=== PATIENT | female | born 1945 | race Caucasian/White ===

== ENCOUNTER 2020-05-08 11:12 | Outpatient (CLI) | payer MEDICARE, OTHER ==
--- NOTE | 2020-05-08 12:04 | RAD ---
XR Foot Lt 3 View STANDARD History: Arthritis Comparison: None. Findings: No acute fracture or malalignment. Lisfranc interval is maintained. Bipartite medial hallux sesamoid. Incidental note is made of os perineum. Punctate round phlebolith in the medial soft tissues of the a nd midfoot. Impression: Chronic findings. No acute osseous abnormality.
== END 2020-05-08 11:13 | disposition home or self-care (01) ==
LOC: BICRAD 11:12
PROVIDERS: ATTEND Podiatrist
DX: M79.672 Pain in left foot (principal)

== ENCOUNTER 2022-07-30 12:05 | Outpatient (CLI) | payer MEDICARE, OTHER ==
[2022-07-30 13:58] LABS: Hemoglobin 11.8 g/dL (12.0-15.5); Mean Corpuscular HGB CONC 34.9 g/dL (32.0-36.0); Mean Corpuscular Volume 94.4 fl (81.6-98.3); Mean Platelet Volume 11.8 fl (7.4-10.4); Platelet Count 245 10x3/uL (150-450); RBC Distribution Width 12.2 % (11.5-14.5); Red Blood Cell (RBC) Count 3.58 10x6/uL (3.90-5.03); White Blood Cell (WBC) Count 8.6 10x3/uL (3.5-10.5)
[2022-07-30 14:14] LABS: PTT 26.6 sec (22.0-33.0); Prothrombin Time 10.5 sec (9.5-12.1)
[2022-07-30 14:17] LABS: Anion Gap 13 mmol/L (10-20); BUN (Urea Nitrogen) 18 mg/dL (9.8-20.1); Calc. Creatinine Clearance 0 mL/min (70-130); Calcium 9.5 mg/dL (7.8-10.44); Carbon Dioxide 27 mmol/L (23-31); Chloride 101 mmol/L (98-107); Estimated GFR 73; Glucose 161 mg/dL (83-110); Potassium 4.2 mmol/L (3.5-5.1); Sodium 137 mmol/L (136-145)
== END 2022-07-30 12:06 | disposition home or self-care (01) ==
LOC: LABBT 12:05
PROVIDERS: ATTEND Surgery
DX: Z01.818 Encounter for other preprocedural examination (principal); M54.16 Radiculopathy, lumbar region; M48.062 Spinal stenosis, lumbar region with neurogenic claudication; M71.30 Other bursal cyst, unspecified site
CPT/HCPCS: 80048; 85027; 85610; 85730; 93005; 93010

== ENCOUNTER 2022-08-02 05:33 | Inpatient (IN) | payer MEDICARE, OTHER ==
[2022-07-31 16:03] VITALS: BMI 35.7
[2022-08-02] MEDS ORDERED: Vancomycin 1 GM VIAL ONE (06:17)
[2022-08-02] MEDS ORDERED: Thrombin 5000 UNITS/5 ML VIAL ONE (06:18)
[2022-08-02] MEDS ORDERED: Neomycin-Polymyxin 1 ML AMP ONE (06:18)
[2022-08-02] MEDS ORDERED: Bacitracin Zinc Ointment 30 gm TUBE ONE (06:37)
[2022-08-02] MEDS ORDERED: Sodium Chloride 0.9% 100 ML ONE (06:39)
[2022-08-02] MEDS ORDERED: CEFAZOLIN 2 GM VIAL ONE (06:39)
[2022-08-02] MEDS ORDERED: Lidocaine 1% MPF 2 ML VIAL ONE (06:53)
[2022-08-02] MEDS ORDERED: Dexmedetomidine 200 MCG/2 ML VIAL ONE (07:01)
[2022-08-02] MEDS ORDERED: Fentanyl 250 MCG/5 ML VIAL ONE (07:01)
[2022-08-02 07:26] LABS: SARS-CoV-2 NAA Rapid Test Not Detected (NotDetected)
[2022-08-02] MEDS ORDERED: Ondansetron PF 4 MG/2 ML Vial ONE (07:36)
[2022-08-02] MEDS ORDERED: ePHEDrine 50 MG/ML VIAL ONE (07:36)
[2022-08-02] MEDS ORDERED: NEOSTIGMINE 3 MG/3 ML SYR 3 MG/3 ML SYRINGE ONE (07:36)
[2022-08-02] MEDS ORDERED: PROPOFOL 200 MG/20 ML VIAL ONE (07:36)
[2022-08-02] MEDS ORDERED: Rocuronium Bromide 10 MG/ML (10ML VIAL) ONE (07:36)
[2022-08-02] MEDS ORDERED: Lidocaine 1% PF 5 ML VIAL ONE (07:36)
[2022-08-02] MEDS ORDERED: Glycopyrrolate 0.2 MG/ML 5 ML SYRINGE ONE (07:36)
[2022-08-02] MEDS ORDERED: HYDROcodone/Acetaminophen 7.5/325 mg Tablet PO PRN ×3 (08:26→12:15)
[2022-08-02] MEDS ORDERED: Ondansetron PF 4 MG/2 ML Vial IVP PRN (08:26)
[2022-08-02] MEDS ORDERED: Morphine 2 MG/ML VIAL SLOW IVP PRN ×2 (08:26→12:15)
[2022-08-02] MEDS ORDERED: diphenhydrAMINE 25 MG CAP PO PRN ×2 (08:26→12:15)
[2022-08-02] MEDS ORDERED: Diazepam 5 MG TAB PO PRN (08:32)
[2022-08-02] MEDS ORDERED: hydrALAZINE 20 MG/ML VIAL SLOW IVP PRN (08:34)
[2022-08-02] MEDS ORDERED: Promethazine HCl 25 MG/ML VIAL IM PRN ×2 (11:23→12:15)
[2022-08-02] MEDS ORDERED: Ondansetron HCl/PF 4 MG/2 ML Vial IVP PRN (11:23)
[2022-08-02] MEDS ORDERED: Promethazine HCl 25 MG/ML VIAL IVPB PRN (11:23)
[2022-08-02] MEDS ORDERED: Fentanyl 100 MCG/2 ML VIAL ONE (11:31)
[2022-08-02] MEDS ORDERED: diphenhydrAMINE 50 MG/ML VIAL IVP PRN (12:15)
[2022-08-02] MEDS ORDERED: Sodium Chloride 0.9% 1,000 ML IV SCH (12:15)
[2022-08-02] MEDS ORDERED: Promethazine HCl 12.5 MG SUPP PR PRN (12:15)
[2022-08-02] MEDS ORDERED: Prochlorperazine 10 MG/2 ML VIAL IM PRN (12:15)
[2022-08-02] MEDS ORDERED: Acetaminophen 650 MG Suppository PR PRN (12:15)
[2022-08-02] MEDS ORDERED: Bisacodyl 10 MG SUPP PR PRN (12:15)
[2022-08-02] MEDS ORDERED: Milk Of Magnesia 30 ML UDCUP PO PRN (12:15)
[2022-08-02] MEDS ORDERED: Promethazine 25 MG TAB PO PRN (12:15)
[2022-08-02] MEDS ORDERED: traMADol HCl 50 MG TAB PO PRN ×2 (12:15)
[2022-08-02] MEDS ORDERED: Mag-Al 1200 mg/1200 mg/30 ML UDCUP PO PRN (12:15)
[2022-08-02] MEDS ORDERED: Acetaminophen 325 MG TAB PO PRN (12:15)
[2022-08-02] MEDS ORDERED: Acetaminophen/Codeine 30-300mg Tablet PO PRN ×2 (12:15)
[2022-08-02] MEDS ORDERED: Ondansetron PF 4 MG/2 ML Vial IM PRN (12:15)
[2022-08-02] MEDS ORDERED: Fleet Enema 133 ML BOT PR PRN (12:15)
[2022-08-02] MEDS ORDERED: Morphine 4 MG/ML VIAL SLOW IVP PRN (12:15)
[2022-08-02] MEDS ORDERED: Ketorolac Tromethamine 30 MG/ML VIAL ONE (12:30)
[2022-08-02] MEDS ORDERED: ceFAZolin (BATCH) 2 GM in Premix Bag 1 BAG IVPB SCH (14:00)
[2022-08-02] MEDS: Anastrozole 1 MG TAB PO SCH (14:57)
[2022-08-02] MEDS: Sodium Chloride 0.9% 1,000 ML IV SCH ×2 (14:57→21:54)
[2022-08-02] MEDS: Pioglitazone HCl 15 MG TAB PO SCH (14:58)
[2022-08-02] MEDS: Calcium Carbonate 500 MG TAB PO SCH (14:58)
[2022-08-02] MEDS: Zinc Sulfate 220 MG CAP PO SCH (14:58)
[2022-08-02] MEDS: Cholecalciferol 1,000 UNITS (25 MCG) TAB PO SCH (14:58)
[2022-08-02] MEDS: Carvedilol 25 MG TAB PO SCH ×2 (14:58→20:35)
[2022-08-02] MEDS: Vitamin E 400 UNITS CAP PO SCH (14:58)
[2022-08-02] MEDS ORDERED: CEFAZOLIN 2 GM in Sodium Chloride 0.9% 100 ML IVPB SCH (15:00)
[2022-08-02] MEDS: tiZANidine HCl 4 MG TAB PO PRN ×2 (15:22→23:20)
[2022-08-02] MEDS: Acetaminophen/Codeine 30-300mg Tablet PO PRN ×2 (15:25→20:36)
[2022-08-02] MEDS: CEFAZOLIN 2 GM in Sodium Chloride 0.9% 100 ML IVPB SCH ×2 (15:26→23:17)
[2022-08-02] MEDS: Ketorolac Tromethamine 30 MG/ML VIAL IVP SCH ×2 (18:06→23:18)
[2022-08-02] MEDS ORDERED: SODIUM FLUORIDE DT SCH (21:00)
[2022-08-03] MEDS: Ketorolac Tromethamine 30 MG/ML VIAL IVP SCH ×3 (05:42→17:06)
[2022-08-03 06:58] LABS: #Eosinphils 0.1 thou/uL (0.0-0.7); #Lymphocytes 1.9 thou/uL (1.20-3.40); #Monocytes 0.9 thou/uL (0.11-0.59); #Neutrophils 6.3 thou/uL (1.40-6.50); %Basophils 0.1 % (0.0-1.0); %Eosinophils 1.2 % (0.0-10.0); %Monocytes 9.4 % (0.0-10.0); %Neutrophils 68.3 % (42.0-75.0); Hemoglobin 9.1 g/dL (12.0-16.0); Mean Corpuscular HGB CONC 34.8 g/dL (32.0-36.0); Mean Corpuscular Hemoglobin 34.5 pg (27.0-31.0); Mean Platelet Volume 8.2 fL (7.4-10.4); Platelet Count 182 10x3/uL (130-400); Red Blood Cell (RBC) Count 2.64 mill/uL (4.20-5.40); White Blood Cell (WBC) Count 9.2 10x3/uL (4.8-10.8)
[2022-08-03 07:11] LABS: Anion Gap 9 mmol/L (10-20); BUN (Urea Nitrogen) 17 mg/dL (9.8-20.1); Calc. Creatinine Clearance 81 mL/min (70-130); Carbon Dioxide 24 mmol/L (23-31); Chloride 101 mmol/L (98-107); Estimated GFR 64; Glucose 151 mg/dL (83-110); Potassium 3.3 mmol/L (3.5-5.1); Sodium 131 mmol/L (136-145)
[2022-08-03] MEDS ORDERED: Chloraseptic Spray 180 ml Bottle PO PRN (07:54)
[2022-08-03] MEDS ORDERED: Potassium Chloride 20 MEQ in Premix Bag 1 BAG IVPB SCH (08:30)
[2022-08-03] MEDS: Anastrozole 1 MG TAB PO SCH (09:19)
[2022-08-03] MEDS: CEFAZOLIN 2 GM in Sodium Chloride 0.9% 100 ML IVPB SCH ×2 (09:19→17:01)
[2022-08-03] MEDS: Cholecalciferol 1,000 UNITS (25 MCG) TAB PO SCH (09:20)
[2022-08-03] MEDS: Carvedilol 25 MG TAB PO SCH ×2 (09:20→20:18)
[2022-08-03] MEDS: Calcium Carbonate 500 MG TAB PO SCH (09:20)
[2022-08-03] MEDS: Pioglitazone HCl 15 MG TAB PO SCH (09:20)
[2022-08-03] MEDS: Vitamin E 400 UNITS CAP PO SCH (09:20)
[2022-08-03] MEDS: Zinc Sulfate 220 MG CAP PO SCH (09:21)
[2022-08-03] MEDS: Acetaminophen/Codeine 30-300mg Tablet PO PRN (11:08)
[2022-08-03] MEDS: Sodium Chloride 0.9% 1,000 ML IV SCH (11:09)
[2022-08-03] MEDS: tiZANidine HCl 4 MG TAB PO PRN (15:02)
[2022-08-04] MEDS: Ketorolac Tromethamine 30 MG/ML VIAL IVP SCH ×3 (00:58→13:01)
[2022-08-04] MEDS: CEFAZOLIN 2 GM in Sodium Chloride 0.9% 100 ML IVPB SCH ×3 (00:59→15:58)
[2022-08-04] MEDS: Sodium Chloride 0.9% 1,000 ML IV SCH ×2 (00:59→17:43)
[2022-08-04 06:42] LABS: #Eosinphils 0.2 thou/uL (0.0-0.7); #Lymphocytes 1.3 thou/uL (1.20-3.40); #Monocytes 0.8 thou/uL (0.11-0.59); #Neutrophils 5.6 thou/uL (1.40-6.50); %Basophils 0.1 % (0.0-1.0); %Eosinophils 2.2 % (0.0-10.0); %Lymphocytes 16.6 % (21.0-51.0); %Monocytes 10.3 % (0.0-10.0); %Neutrophils 70.8 % (42.0-75.0); Hemoglobin 9.1 g/dL (12.0-16.0); Mean Corpuscular HGB CONC 34.2 g/dL (32.0-36.0); Mean Corpuscular Hemoglobin 33.4 pg (27.0-31.0); Mean Corpuscular Volume 97.6 fl (78.0-98.0); Mean Platelet Volume 8.2 fL (7.4-10.4); Platelet Count 171 10x3/uL (130-400); RBC Distribution Width 10.8 % (11.5-14.5); Red Blood Cell (RBC) Count 2.71 mill/uL (4.20-5.40); White Blood Cell (WBC) Count 7.9 10x3/uL (4.8-10.8)
[2022-08-04] MEDS: Calcium Carbonate 500 MG TAB PO SCH (08:53)
[2022-08-04] MEDS: Cholecalciferol 1,000 UNITS (25 MCG) TAB PO SCH (08:53)
[2022-08-04] MEDS: Pioglitazone HCl 15 MG TAB PO SCH (08:53)
[2022-08-04] MEDS: Carvedilol 25 MG TAB PO SCH ×3 (08:53→20:03)
[2022-08-04] MEDS: Vitamin E 400 UNITS CAP PO SCH (08:53)
[2022-08-04] MEDS: Zinc Sulfate 220 MG CAP PO SCH (08:53)
[2022-08-04] MEDS: Anastrozole 1 MG TAB PO SCH (08:53)
[2022-08-04] MEDS: tiZANidine HCl 4 MG TAB PO PRN (20:08)
[2022-08-05] MEDS: CEFAZOLIN 2 GM in Sodium Chloride 0.9% 100 ML IVPB SCH ×3 (00:23→15:25)
[2022-08-05] MEDS: Sodium Chloride 0.9% 1,000 ML IV SCH ×2 (03:30→20:33)
[2022-08-05] MEDS: Cholecalciferol 1,000 UNITS (25 MCG) TAB PO SCH (09:03)
[2022-08-05] MEDS: Vitamin E 400 UNITS CAP PO SCH (09:03)
[2022-08-05] MEDS: Anastrozole 1 MG TAB PO SCH (09:04)
[2022-08-05] MEDS: Calcium Carbonate 500 MG TAB PO SCH (09:04)
[2022-08-05] MEDS: Zinc Sulfate 220 MG CAP PO SCH (09:04)
[2022-08-05] MEDS: Pioglitazone HCl 15 MG TAB PO SCH (09:04)
[2022-08-05] MEDS: Carvedilol 25 MG TAB PO SCH ×2 (09:10→20:37)
[2022-08-05 11:49] LABS: Calcium 8.5 mg/dL (7.8-10.44); Chloride 101 mmol/L (98-107); Potassium 4.2 mmol/L (3.5-5.1); Sodium 134 mmol/L (136-145)
[2022-08-05 11:50] LABS: Glucose 179 mg/dL (83-110)
[2022-08-05 11:51] LABS: Anion Gap 10 mmol/L (10-20); Carbon Dioxide 27 mmol/L (23-31)
[2022-08-05 11:53] LABS: Calc. Creatinine Clearance 89 mL/min (70-130); Estimated GFR 71
[2022-08-05 11:54] LABS: BUN (Urea Nitrogen) 16 mg/dL (9.8-20.1)
[2022-08-05] MEDS: ASCORBIC ACID PO SCH ×2 (12:13→12:15)
[2022-08-05] MEDS: [UNRECOGNIZED DRUG - OTHER] PO SCH ×3 (12:13→12:15)
[2022-08-05] MEDS: MULTIVIT MIN PO SCH ×2 (12:13→12:15)
[2022-08-05] MEDS: CINNAMON BARK 500 MG PO SCH ×2 (12:14→12:15)
[2022-08-05] MEDS: tiZANidine HCl 4 MG TAB PO PRN (20:38)
[2022-08-06] MEDS: CEFAZOLIN 2 GM in Sodium Chloride 0.9% 100 ML IVPB SCH ×2 (00:40→09:05)
[2022-08-06] MEDS: Sodium Chloride 0.9% 1,000 ML IV SCH (03:30)
[2022-08-06] MEDS: Acetaminophen 325 MG TAB PO PRN ×2 (05:55→11:08)
[2022-08-06] MEDS: Calcium Carbonate 500 MG TAB PO SCH (08:50)
[2022-08-06] MEDS: Vitamin E 400 UNITS CAP PO SCH (08:50)
[2022-08-06] MEDS: Pioglitazone HCl 15 MG TAB PO SCH (08:51)
[2022-08-06] MEDS: Zinc Sulfate 220 MG CAP PO SCH (08:51)
[2022-08-06] MEDS: Cholecalciferol 1,000 UNITS (25 MCG) TAB PO SCH (08:51)
[2022-08-06] MEDS: Carvedilol 25 MG TAB PO SCH (08:51)
[2022-08-06] MEDS: Anastrozole 1 MG TAB PO SCH (08:52)
[2022-08-06] MEDS ORDERED: Ibuprofen 600 MG TAB PO PRN (09:52)
[2022-08-06 12:06] VITALS: BP 133/74; TEMP 97.7
== END 2022-08-06 13:25 | disposition home health service (06) | DRG 517 ==
LOC: SDC 05:33 → SJJU 13:46 → OBSVTOIN 08-05 07:47
PROVIDERS: ADMIT Surgery; ATTEND Surgery
PROC: 01NB0ZZ Release Lumbar Nerve, Open Approach (ICD-10-PCS; principal; 2022-08-05)
DX: M71.38 Other bursal cyst, other site (principal); Z20.822 Contact with and (suspected) exposure to COVID-19; M54.16 Radiculopathy, lumbar region; M48.062 Spinal stenosis, lumbar region with neurogenic claudication; I10 Essential (primary) hypertension; E66.9 Obesity, unspecified; Z88.2 Allergy status to sulfonamides; Z88.8 Allergy status to other drugs, medicaments and biological substances; Z87.891 Personal history of nicotine dependence; Z68.35 Body mass index [BMI] 35.0-35.9, adult; Z79.899 Other long term (current) drug therapy; Z79.82 Long term (current) use of aspirin
CPT/HCPCS: 36415; 80048; 85025; 93970; 96365; 96366; 96375; 96376; G0378; J1885; J2405; J2704; J3010; J3370; J3480; J3490; J7050; U0002